=== PATIENT | female | born 1955 | race Caucasian/White ===

== ENCOUNTER 2019-12-25 11:42 | Outpatient (CLI) | payer SELFPAY | END 2019-12-25 11:43 | disposition EMS.NT | LOC: EMS 11:42 | PROVIDERS: ATTEND Surgery | DX: R42 Dizziness and giddiness (principal) ==

== ENCOUNTER 2021-07-03 10:38 | Outpatient (CLI) | payer MEDICARE | END 2021-07-03 23:59 | disposition home or self-care (01) | LOC: LAB.S 10:38 | PROVIDERS: ATTEND Physician Assistant Medical | DX: R07.0 Pain in throat (principal); Z20.822 Contact with and (suspected) exposure to COVID-19 | CPT/HCPCS: 87070; U0004 ==

== ENCOUNTER 2021-07-05 08:00 | Outpatient (CLI) | payer MEDICARE ==
--- NOTE | 2021-07-05 14:09 | XRAY Report ---
PROCEDURE: Chest 2 View X-Ray INDICATIONS: DECREASED BREATH SOUNDS RIGHT LOWER LOBE TECHNIQUE: 2 view(s) of the chest. COMPARISON: None. FINDINGS: Surgical changes and devices: None. Lungs and pleura: There are infiltrates and consolidation right lower lobe consistent with pneumonia . No pleural effusions or pneumothorax. Lungs are clear. Mediastinum: Mediastinal contours are normal. Heart size is normal. Bones and chest wall: No suspicious bony abnormalities. Soft tissues appear unremarkable. IMPRESSION: Right lower lobe pneumonia. Reviewed by: Crista Mora MD on 07/05/2021 1:08 PM JOSH Approved by: Crista Mora MD on 07/05/2021 1:08 PM AKJANETH Station ID: [id number]
== END 2021-07-05 23:59 | disposition home or self-care (01) ==
LOC: DI.S 08:00
PROVIDERS: ATTEND Physician Assistant Medical
DX: R09.89 Other specified symptoms and signs involving the circulatory and respiratory systems (principal); B97.89 Other viral agents as the cause of diseases classified elsewhere; Z20.822 Contact with and (suspected) exposure to COVID-19; J18.9 Pneumonia, unspecified organism
CPT/HCPCS: 71046; 87275; 87276; U0004